=== PATIENT | female | born 1950 | race Caucasian/White ===

== ENCOUNTER 2023-05-17 01:49 | Emergency (ER) | payer OTHER, SELFPAY ==
[2023-05-17 01:49] VITALS: BMI 20.9
[2023-05-17 01:53] VITALS: BP 115/74
[2023-05-17 02:00] VITALS: BP 115/84
[2023-05-17 02:02] VITALS: BP 115/84
--- NOTE | 2023-05-17 02:20 | ED.GENMED ---
History of Present Illness
General
Chief Complaint: Fainting/Passed Out
Time Seen by Provider: 05/17/23 02:14
Travel History
Have you had any contact with someone who has COVID-19?: No
Do you have any symptoms of coronavirus? Fever > 100 degrees, chills, cough, shortness of breath, sore throat, loss of taste or smell, muscle aches, or headache?: No
History of Present Illness
History of Present Illness:
HPI: The patient states that she sat down to use a toilet and then she realized that she had passed out. The feels that she may have passed out a couple times. states that she had several similar episodes in the past that were
attributed to dehydration. The patient however states she has been drinking plenty of fluid. She never had any chest pain or shortness of breath.
EXAM:
GENERAL: Well appearing in no distress
HEAD: There is a 8 cm linear laceration at the hairline that extends posteriorly
NECK: There is no midline C-spine tenderness
HEENT: Moist oral mucosa
CARDIOVASCULAR: No murmurs, normal heart rate and rhythm, No chest wall tenderness
PULMONARY: No respiratory distress, breath sounds are clear and equal
ABDOMEN: Soft with no peritoneal signs, no tenderness
NEUROLOGIC: Excellent strength all extremities, no coordination deficits
PSYCHIATRIC: Appropriate mental status, normal insight and judgement
EXTREMITIES: Nontender, no edema, moves all extremities equally
SKIN: No rash, no lesions
ED COURSE:
2:40 AM: I initially evaluated patient
NUMBER AND COMPLEXITY OF PROBLEMS ADDRESSED AT THE ENCOUNTER
� Chronic conditions affecting care: Migraine headaches
� Acute Exacerbation and/or Progression of Chronic Illness: This is an acute problem
� Differential Diagnosis includes: Dysrhythmia, dehydration, vasovagal event
AMOUNT AND/OR COMPLEXITY OF DATA TO BE REVIEWED AND ANALYZED
� I performed an independent evaluation of and my interpretation is:
EKG: Sinus 63, normal axis, no acute ST abnormality, normal intervals
CT: CAT scan of the brain showed no acute abnormality
X-rays:
Laboratory Studies: White count 1.3, hemoglobin 11.9, slightly low bicarb at 20
Other:
� Review of other/old records: Blood work from March 2021 showed a hemoglobin of 11.9 which is the same as what it is today
� Clinical information was obtained by an independent historian: Spoke to the at bedside
� Prescriptions/Medications Considered but not given:
� Further testing considered but not performed:
RISK OF COMPLICATIONS AND/OR MORBIDITY OR MORTALITY OF PATIENT MANAGEMENT
� Social determinants of health affecting care: Lives at home
� Discussion with other providers:
� Escalation of care including admission/observation vs risk of discharge considered: The patient had head injury with loss of the consciousness. Blood work is relatively unremarkable. CT brain unremarkable. Laceration was
copiously cleaned with saline and repaired. There has been no abnormality seen on cardiac monitoring. Other than headache, the patient has no significant symptoms at time of discharge.
Past History
Past History
ED Past Medical History: Other (Chronic neck pain) and Other (Chronic migraine headaches)
ED Past Surgical History: Gynecological (Hysterectomy)
Social History
Tobacco: Non-smoker
Alcohol: Occasional
Drug: None
Personal:
Living: with family
Family History
Family History: Other (Noncontributory)
Phy Exam
Physical Exam
Physical Exam:
See HPI
Course
Orders/Labs/Results
Orders:
Orders
05/17/23 02:21
ECG [Electrocardiogram (*1)] Urgent
Reason for Study: Syncope
EKG- Treatment ONCE
05/17/23 02:32
CT Head W/o Iv Contrast Stat
Comment:
Reason For Exam: Head Trauma
Basic Metabolic Panel Urgent
Complete Blood Count/With Diff Urgent
05/17/23 03:31
Acetaminophen [Tylenol] 1,000 mg PO NOW STA
Tetanus/Diphth/Acelpertussis [Adacel] 0.5 ml IM .ONCE ONE
Abnormal Lab Results
05/17/23
02:32
WBC 11.3 H 10^3/uL
(4.8-10.8)
RBC 3.79 L 10^6/uL
(4.20-5.40)
Hgb 11.9 L g/dL
(12.0-16.0)
Hct 34.0 L %
(37.0-47.0)
MCH 31.4 H pg
(27.0-31.0)
Absolute Neuts (auto) 8.3 H 10^3/uL
(1.4-6.5)
Absolute Monos (auto) 0.8 H 10^3/uL
(0.1-0.6)
Lymphocytes % 14.2 L %
(20.5-51.1)
Chloride 110 H mmol/L
(98-107)
Carbon Dioxide 20 L mmol/L
(22-30)
Glucose 104 H mg/dl
(70-99)
05/17/23 02:32
05/17/23 02:32
Vital Signs
Initial and Last Documented VS:
Initial Vital Signs
Pulse Ox
76
05/17/23 01:52
Last Documented Vital Signs
Temp Pulse Resp BP Pulse Ox
97.7 F 72 11 128/65 100
05/17/23 02:02 05/17/23 03:21 05/17/23 02:45 05/17/23 03:21 05/17/23 02:45
Procedures
Laceration Closure
Anterior Head:
Status of Wound: clean
Size of Wound in cm: 8
Description of Wound Edges: sharp
Preparation: cleaned with saline
Type of Closure: single layer closure
Skin Closure Material: skin camryn and other
Number of sutures: 2
Additional information:
8 camryn were also used posterior to the hair line. This is an 8 cm laceration.
*Critical Care Note
Total Time (30-74mins, 75-104mins- exclusive of procedures): Not Applicable
ED Attending Note
-
Portions of this chart may have been created with voice recognition software.� Occasional wrong word or��sound alike� substitutions may have occurred due to the inherent limitations of voice recognition software.
Discharge Plan
Departure
Prescriptions:
No Action
multivitamin [Daily Multiple] 1 EACH tablet
1 ea PO DAILY
sumatriptan succinate [Imitrex] 100 MG tablet
100 mg PO PRN (Reason: HOLLIDAY)
calcium carbonate-vit D3-min 1 EACH tablet
1 ea PO DAILY
zzjcsprcru-emzabffrtmpie-wjwa 1 EACH tablet
1 - 2 ea PO Q6HPRN PRN (Reason: headache) Qty: 30 0RF
raloxifene 60 MG tablet
60 mg PO DAILY
propranolol 120 MG capsule,extended release 24 hr
120 mg PO QPM
Patient Comments:
with dinner
ascorbic acid (vitamin C) [Vitamin C] 500 MG tablet
1,000 mg PO BID Qty: 56 0RF
Rx Instructions:
Take 1,000 mg twice a day for 14 days
aspirin 81 MG tablet,chewable
81 mg PO DAILY Qty: 14 0RF
Rx Instructions:
Take 81 mg daily for 14 days
zinc sulfate 220 MG capsule
220 mg PO DAILY Qty: 14 0RF
Rx Instructions:
Take 220 mg daily for 14 days
cholecalciferol (vitamin D3) 1,000 UNITS tablet
2,000 units PO DAILY Qty: 28 0RF
Rx Instructions:
Take 2,000 units daily for 14 days
Molly
180 mg PO DAILY
Caltrate 600 plus D
1 tab PO DAILY
Pepcid
40 mg PO DAILY
hydroxyzine HCl
10 mg PO DAILY
rizatriptan
10 mg PO DAILY
topiramate
100 mg PO DAILY
Referrals:
Belen Sibley PA-C [Family Provider] -
Interventions
Interventions:
*Risk Screen - Suicide Last Done: 05/17/23 02:07
*General Assessment Last Done: 05/17/23 02:08
*Neglect/Abuse Screening Last Done: 05/17/23 02:09
ED- Fall Risk Assessment Last Done: 05/17/23 02:10
ED- Cardiac Assessment Last Done: 05/17/23 02:15
ED- Neurological Assessment Last Done: 05/17/23 02:15
[2023-05-17 02:43] LABS: % Basophils 0.5 % (0-2); % Eosinophils 4.5 % (0-6); % Immature Granulocytes 0.3 % (0-0.5); % Lymphocytes 14.2 % (20.5-51.1); % Monocytes 7.4 % (1.7-9.3); % Neutrophils 73.1 % (42.2-75.2); Absolute Basophils 0.1 10^3/uL (0-0.2); Absolute Eosinophils 0.5 10^3/uL (0-0.7); Absolute Lymphocytes 1.6 10^3/uL (1.2-3.4); Absolute Monocytes 0.8 10^3/uL (0.1-0.6); Absolute Neutrophils 8.3 10^3/uL (1.4-6.5); Hemoglobin 11.9 g/dL (12.0-16.0); Mean Corpuscular Hgb 31.4 pg (27.0-31.0); Mean Corpuscular Volume 89.7 fL (81.0-99.0); Mean Platelet Volume 10.4 fL (7.4-10.4); Nucleated Red Blood Cells % 0 %; Platelet Count 183 10^3/uL (130-400); Red Blood Cell Count 3.79 10^6/uL (4.20-5.40); Red Cell Dist. Width 13.3 % (11.5-14.5); White Blood Cell Count 11.3 10^3/uL (4.8-10.8)
[2023-05-17 03:03] LABS: Blood Urea Nitrogen 16 mg/dl (7-17); Calcium 8.5 mg/dl (8.4-10.2); Carbon Dioxide 20 mmol/L (22-30); Chloride 110 mmol/L (98-107); Glucose 104 mg/dl (70-99); Potassium 4.1 mmol/L (3.5-5.1); Sodium 138 mmol/L (135-145); eGFR > 60.00
[2023-05-17 03:21] VITALS: BP 128/65
[2023-05-17] MEDS: TYLENOL 1000 MG PO (03:37)
[2023-05-17] MEDS: ADACEL 0.5 ML IM (03:39)
[2023-05-17 04:05] VITALS: BP 128/65
== END 2023-05-17 04:06 | disposition home or self-care (01) ==
LOC: EMR 01:49
PROVIDERS: EMERGENCY PHYSICIAN Emergency Medicine; FAMILY PHYSICIAN Physician Assistant
DX: R55 Syncope and collapse (principal); S01.01XA Laceration without foreign body of scalp, initial encounter; R51.9 Headache, unspecified; W18.11XA Fall from or off toilet without subsequent striking against object, initial encounter; M54.2 Cervicalgia; G89.29 Other chronic pain
CPT/HCPCS: 99285; 12004; 90471; 70450; 80048; 85025; 90715; 93005

== ENCOUNTER → 2023-07-21 09:27 | Outpatient (REF) | payer OTHER, SELFPAY | LOC: HWRAD 09:27 | PROVIDERS: ATTENDING PHYSICIAN Specialist; FAMILY PHYSICIAN Physician Assistant Medical | DX: R63.4 Abnormal weight loss (principal) | CPT/HCPCS: 74177; Q9967 ==

== ENCOUNTER → 2023-09-04 09:14 | Outpatient (REF) | payer OTHER, SELFPAY | LOC: HWWDC 09:14 | PROVIDERS: ATTENDING PHYSICIAN Physician Assistant Medical | DX: Z12.31 Encounter for screening mammogram for malignant neoplasm of breast (principal) | CPT/HCPCS: 77063; 77067 ==

== ENCOUNTER → 2023-09-18 06:43 | Day surgery (SDC) | payer OTHER, SELFPAY | LOC: GI 06:43 | PROVIDERS: ATTENDING PHYSICIAN Specialist | DX: D12.3 Benign neoplasm of transverse colon (principal); K57.30 Diverticulosis of large intestine without perforation or abscess without bleeding; K56.2 Volvulus; R10.32 Left lower quadrant pain; R63.4 Abnormal weight loss | CPT/HCPCS: 45385; 88305 ==

== ENCOUNTER → 2024-05-10 15:02 | Outpatient (REF) | payer BC, SELFPAY ==
[2024-05-10 15:56] LABS: D-Dimer < 0.27 ug/mlFEU (0.00-0.50)
== END ==
LOC: RAD 15:02
PROVIDERS: ATTENDING PHYSICIAN Internal Medicine
DX: R07.9 Chest pain, unspecified (principal)
CPT/HCPCS: 36415; 71046; 85379

== ENCOUNTER → 2024-07-13 10:17 | Outpatient (REF) | payer OTHER, SELFPAY | LOC: RCS 10:17 | PROVIDERS: ATTENDING PHYSICIAN Physician Assistant | DX: I49.9 Cardiac arrhythmia, unspecified (principal) | CPT/HCPCS: 93225; 93226 ==

== ENCOUNTER 2024-08-16 13:53 | Emergency (ER) | payer OTHER, SELFPAY ==
[2024-08-16 14:01] VITALS: BP 140/88
[2024-08-16 14:22] LABS: % Basophils 0.4 % (0-2); % Eosinophils 0.1 % (0-6); % Immature Granulocytes 0.3 % (0-0.5); % Lymphocytes 17.3 % (20.5-51.1); % Monocytes 6.1 % (1.7-9.3); % Neutrophils 75.8 % (42.2-75.2); Absolute Lymphocytes 1.3 10^3/uL (1.2-3.4); Absolute Monocytes 0.5 10^3/uL (0.1-0.6); Absolute Neutrophils 5.6 10^3/uL (1.4-6.5); Hematocrit 45.3 % (37.0-47.0); Hemoglobin 15.4 g/dL (12.0-16.0); Mean Corpuscular Hgb 31.2 pg (27.0-31.0); Mean Corpuscular Volume 91.7 fL (81.0-99.0); Mean Platelet Volume 10.5 fL (7.4-10.4); Nucleated Red Blood Cells % 0 %; Platelet Count 221 10^3/uL (130-400); Red Blood Cell Count 4.94 10^6/uL (4.20-5.40); Red Cell Dist. Width 13.9 % (11.5-14.5); White Blood Cell Count 7.4 10^3/uL (4.8-10.8)
[2024-08-16 14:37] LABS: ALT (SGPT) 19 U/L (0-35); AST (SGOT) 27 U/L (14-36); Albumin 4.9 g/dl (3.5-5.0); Alkaline Phosphatase 84 U/L (38-126); Blood Urea Nitrogen 13 mg/dl (7-17); Calcium 9.2 mg/dl (8.4-10.2); Carbon Dioxide 20 mmol/L (22-30); Chloride 108 mmol/L (98-107); Glucose 117 mg/dl (70-99); Lipase 322 U/L (23-300); Potassium 4.8 mmol/L (3.5-5.1); Sodium 138 mmol/L (135-145); Total Bilirubin 0.8 mg/dl (0.2-1.3); Total Protein 7.6 g/dl (6.3-8.2); eGFR > 60.00
--- NOTE | 2024-08-16 15:31 | ED.GENMED ---
History of Present Illness
General
Chief Complaint: Abdominal Symptoms
Time Seen by Provider: 08/16/24 14:53
History of Present Illness
History of Present Illness:
Note:
CHIEF COMPLAINT(S)
Persistent migraine headache for one week.
HISTORY OF PRESENT ILLNESS
The patient is a 73-year-old female presenting with a migraine headache persisting for one week. The patient reports this headache is not typical of her usual migraines, with its failure to resolve being the primary difference. She mentions
experiencing some nausea without vomiting. The patients normal migraine medication regimen reportedly includes Rizatriptan, but she has not taken any other medications recently for this episode. The decision was made to conduct a CT scan of the head
due to the persistent nature of the headache and accompanying nausea to rule out any serious underlying causes. An IV cocktail including anti-inflammatories, antinausea medication, magnesium bolus, and IV fluids has been planned as part of the
stepwise approach to manage the headache.
ALLERGIES
The patient has reported a rash induced by sulfonamide-based medications.
MEDICATIONS
- Rizatriptan for migraine headaches
PHYSICAL EXAM
- Neurological examination is unremarkable with intact cranial nerves II through XII.
- Patient is alert, oriented, and displays no signs of confusion.
- Nursing notes reviewed and vital signs reviewed.
PLAN
- Conduct a CT scan of the head to evaluate for potential neurological issues due to the non-resolving headache.
- Administer an IV cocktail consisting of anti-inflammatory medication, anti-nausea medication, magnesium bolus, and IV fluids to address dehydration and alleviate the headache symptoms.
- Monitor patient for response to treatment with potential for additional IV medications if initial treatment proves ineffective.
DIFFERENTIAL DIAGNOSIS
The Differential Diagnosis includes, in no particular order and is not limited to:
1. Intractable migraine
2. Tension-type headache
3. Temporal arteritis
4. Cluster headache
5. Medication overuse headache
6. Hypertension-related headache
7. Glaucoma
8. Sinusitis
9. Subarachnoid hemorrhage
10. Brain tumor
CARE-UPDATE
08/16/24 - 16:23
Patients current imaging reports are normal, showing no changes indicative of bleeding from a brain tumor. The patient will continue receiving fluids, and a small dose of an IV steroid will be administered prior to discharge. This has been suggested
by studies to aid in preventing migraine recurrences, although it does not alleviate the acute migraine headache itself.
Disposition:
SUMMARY OF ENCOUNTER
The patient, a 73-year-old female, presented with a persistent migraine headache lasting for one week. Her usual migraine medication, Rizatriptan, was ineffective in resolving the headache. Unlike her previous migraines, this one did not resolve,
prompting further investigation with a CT scan to rule out intracranial pathologies such as hemorrhage or neoplasm. The CT findings were reassuring, showing no intracranial issues. Due to her reduced oral intake and accompanying nausea, laboratory
tests were conducted to look for possible metabolic derangements, although results were unremarkable. Treatment in the emergency department included a migraine cocktail, which resulted in a significant improvement.
DISPOSITION
The patient will be discharged home as she responded well to treatment.
ASSESSMENT
The patients symptoms are consistent with an intractable migraine, given the failure of her usual medication to alleviate the symptoms and the persistence of the headache beyond the typical duration.
EMERGENCY TREATMENTS ADMINISTERED
The patient received a migraine cocktail consisting of antinausea medication, anti-inflammatory agents, magnesium, and IV fluids. A single dose of dexamethasone was also administered to help prevent recurrence of the migraine.
INDEPENDENT INTERPRETATION OF TESTS
- CT scan of the head shows no intracranial abnormalities or pathologies.
- labs indicate no significant metabolic derangements, which was assessed due to her lack of oral intake and nausea.
PLAN
The patient received a dose of dexamethasone in the emergency department to help prevent recurrence of the migraine. She will be discharged with instructions to follow up with her primary care provider if symptoms persist or worsen.
MEDICATION RECONCILIATION
- Rizatriptan, as previously prescribed.
- Administered IV migraine cocktail in the emergency department.
- Administered a single dose of dexamethasone prior to discharge.
MEDICAL DECISION MAKING
The complexity of the patients condition necessitated a thorough evaluation, including a CT scan to rule out serious underlying conditions, and laboratory tests to assess for metabolic issues given the patients nausea and lack of food intake. The
decision to administer a migraine cocktail and later dexamethasone was based on the persistent nature of the headache and to prevent recurrence, reflecting a comprehensive approach to her acute care.
Past History
Past History
ED Past Medical History: Other (Chronic neck pain) and Other (Chronic migraine headaches)
ED Past Surgical History: Gynecological (Hysterectomy)
Social History
Tobacco: Non-smoker
Alcohol: Occasional
Drug: None
Personal:
Living: with family
Family History
Family History: Other (Noncontributory)
Phy Exam
Physical Exam
Physical Exam:
.
Course
Orders/Labs/Results
Orders:
Orders
08/16/24 14:[address] [CT Head W/o Iv Contrast] Urgent
Comment:
Reason For Exam: migraine
08/16/24 14:12
Complete Blood Count/With Diff Urgent
Comprehensive Metabolic Panel Urgent
Lipase Urgent
08/16/24 15:29
0.9% Sodium Chloride 1000 ml [Nss] 1,000 ml IV BOLUS
Ketorolac [Toradol] 15 mg IV NOW STA
Magnesium Sulfate 2 Gram/50 ml [Magnesium Sulfate] 2 gram in 50 ml IV NOW
Metoclopramide [Reglan] 10 mg IV NOW STA
08/16/24 16:37
Dexamethasone Sod Phosphate [Decadron] 6 mg IV NOW STA
Abnormal Lab Results
08/16/24
14:12
MCH 31.2 H pg
(27.0-31.0)
MPV 10.5 H fL
(7.4-10.4)
Neutrophils % 75.8 H %
(42.2-75.2)
Lymphocytes % 17.3 L %
(20.5-51.1)
Chloride 108 H mmol/L
(98-107)
Carbon Dioxide 20 L mmol/L
(22-30)
Glucose 117 H mg/dl
(70-99)
Lipase 322 H U/L
(23-300)
08/16/24 14:12
08/16/24 14:12
Vital Signs
Initial and Last Documented VS:
Initial Vital Signs
Temp Pulse Resp BP Pulse Ox
98.6 F 76 16 140/88 98
08/16/24 14:01 08/16/24 14:01 08/16/24 14:01 08/16/24 14:01 08/16/24 14:01
Last Documented Vital Signs
Temp Pulse Resp BP Pulse Ox
98.6 F 74 16 166/93 97
08/16/24 14:01 08/16/24 16:53 08/16/24 16:53 08/16/24 16:53 08/16/24 16:53
*Critical Care Note
Total Time (30-74mins, 75-104mins- exclusive of procedures): Not Applicable
ED Attending Note
-
Portions of this chart may have been created with voice recognition software.� Occasional wrong word or��sound alike� substitutions may have occurred due to the inherent limitations of voice recognition software.
Discharge Plan
Departure
Patient Disposition: Home (Routine Discharge)
Date of Disposition: 08/16/24
Time of Disposition: 16:37
Patient with high blood pressure during this ER visit?: No
Discharge Problem:
Intractable migraine
Instructions: Migraine in adults
Prescriptions:
No Action
multivitamin [Daily Multiple] 1 EACH tablet
1 ea PO DAILY
sumatriptan succinate [Imitrex] 100 MG tablet
100 mg PO PRN (Reason: HOLLIDAY)
calcium carbonate-vit D3-min 1 EACH tablet
1 ea PO DAILY
riijijputl-lktekdppjcnzr-ogkw 1 EACH tablet
1 - 2 ea PO Q6HPRN PRN (Reason: headache) Qty: 30 0RF
raloxifene 60 MG tablet
60 mg PO DAILY
propranolol 120 MG capsule,extended release 24 hr
120 mg PO QPM
Patient Comments:
with dinner
ascorbic acid (vitamin C) [Vitamin C] 500 MG tablet
1,000 mg PO BID Qty: 56 0RF
Rx Instructions:
Take 1,000 mg twice a day for 14 days
aspirin 81 MG tablet,chewable
81 mg PO DAILY Qty: 14 0RF
Rx Instructions:
Take 81 mg daily for 14 days
zinc sulfate 220 MG capsule
220 mg PO DAILY Qty: 14 0RF
Rx Instructions:
Take 220 mg daily for 14 days
cholecalciferol (vitamin D3) 1,000 UNITS tablet
2,000 units PO DAILY Qty: 28 0RF
Rx Instructions:
Take 2,000 units daily for 14 days
Molly
180 mg PO DAILY
Caltrate 600 plus D
1 tab PO DAILY
Pepcid
40 mg PO DAILY
hydroxyzine HCl
10 mg PO DAILY
rizatriptan
10 mg PO DAILY
topiramate
100 mg PO DAILY
Referrals:
Lionel Mccarthy MD [Family Provider, Internal Medicine]
Interventions
Interventions:
*Risk Screen - Suicide Last Done: 08/16/24 14:01
*General Assessment Last Done: 08/16/24 14:01
*Neglect/Abuse Screening Last Done: 08/16/24 15:44
*ED- Fall Risk Assessment Last Done: 08/16/24 14:01
*ED COVID-19 Vaccine History Last Done: 08/16/24 14:01
*Nursing Disposition Last Done: 08/16/24 17:12
MO-Fsvjjc-Smxbyfadlw Assessment Last Done: 08/16/24 15:44
Discharge Date and Time
Discharge Date/Time: 08/16/24 17:13
Print Language: MONGOLIAN
[2024-08-16] MEDS: NSS 1000 IV (15:57)
[2024-08-16] MEDS: REGLAN 10 MG IV (15:58)
[2024-08-16] MEDS: TORADOL 15 MG IV (15:58)
[2024-08-16] MEDS: MAGNESIUM SULFATE 50 IV (15:58)
[2024-08-16] MEDS: DECADRON 6 MG IV (16:49)
[2024-08-16 16:53] VITALS: BP 166/93
== END 2024-08-16 17:13 | disposition home or self-care (01) ==
LOC: EMR 13:53
PROVIDERS: Emergency Medicine; EMERGENCY PHYSICIAN Emergency Medicine; FAMILY PHYSICIAN Internal Medicine
DX: G43.919 Migraine, unspecified, intractable, without status migrainosus (principal)
CPT/HCPCS: 99285; 96374; 96375 ×3; 70450; 80053; 83690; 85025

== ENCOUNTER → 2024-08-30 10:52 | Outpatient (REF) | payer OTHER, SELFPAY | LOC: HWRAD 10:52 | PROVIDERS: ATTENDING PHYSICIAN Internal Medicine Rheumatology; FAMILY PHYSICIAN Physician Assistant Medical | DX: M81.0 Age-related osteoporosis without current pathological fracture (principal) | CPT/HCPCS: 77080 ==

== ENCOUNTER → 2024-09-07 06:46 | Outpatient (REF) | payer OTHER, SELFPAY | LOC: HWWDC 06:46 | PROVIDERS: ATTENDING PHYSICIAN Physician Assistant | DX: Z12.31 Encounter for screening mammogram for malignant neoplasm of breast (principal) | CPT/HCPCS: 77063; 77067 ==